=== PATIENT | female | born 1965 | race Caucasian/White ===

== ENCOUNTER 2021-09-11 08:01 | Day surgery (SDC) | payer OTHER ==
[~2021-09-11] VITALS: Ht 162.6 cm; Wt 68.0 kg
[2021-09-11] MEDS ORDERED: fentaNYL citrate 0.05 MG/ML VIAL ONE (09:36)
[2021-09-11] MEDS ORDERED: MIDAZOLAM 5 MG/5 ML VIAL ONE (09:36)
[2021-09-11] MEDS ORDERED: MIDAZOLAM 2 MG/2 ML VIAL IVP ONE (10:10)
== END 2021-09-11 10:30 | disposition home or self-care (01) ==
LOC: MMU 08:01 → MOR 08:01
PROVIDERS: ATTEND Internal Medicine Gastroenterology
DX: K21.9 Gastro-esophageal reflux disease without esophagitis (principal); K22.2 Esophageal obstruction; K29.70 Gastritis, unspecified, without bleeding; K44.9 Diaphragmatic hernia without obstruction or gangrene; Z20.822 Contact with and (suspected) exposure to COVID-19; Z79.899 Other long term (current) drug therapy
CPT/HCPCS: 43235; 81025; 87426; J2250; J3010